=== PATIENT | female | born 1995 | race Caucasian/White ===

== ENCOUNTER 2020-06-11 13:02 | Emergency (ER) | payer OTHER, SELFPAY ==
[2020-06-11 13:16] VITALS: BP 118/68; PULSE 70; RESP 18; TEMP 37.1; O2SAT 100; BMI 25.5
--- NOTE | 2020-06-11 13:21 | DI.RAD.S_ITS ---
PROCEDURE: XR FOOT RT MIN 3V INDICATIONS: fall TECHNIQUE: 3 views of the foot were acquired. COMPARISON: [facility], CR, XR ANKLE RT MIN 3V, 06/11/2020, 13:20. FINDINGS: Bones: No fractures or dislocations. No suspicious bony lesions. Soft tissues: No tibiotalar joint effusion. Achilles tendon appears normal in thickness. IMPRESSION: No acute osseous abnormality of the right foot. Dictated by: Nawaf Gaines M.D. on 06/11/2020 at 12:49 Approved by: Nawaf Gaines M.D. on 06/11/2020 at 12:50
--- NOTE | 2020-06-11 13:21 | DI.RAD.S_ITS ---
PROCEDURE: XR ANKLE RT MIN 3V INDICATIONS: fall TECHNIQUE: 3 views of the ankle were acquired. COMPARISON: [facility], CR, XR FOOT RT MIN 3V, 06/11/2020, 13:20. FINDINGS: Bones: No fractures or dislocations. Ankle mortise is normally aligned. No suspicious bony lesions. Soft tissues: No tibiotalar joint effusion. Achilles tendon appears normal in thickness, but is not adequately evaluated on conventional x-ray. IMPRESSION: No acute osseous abnormality of the right ankle. Dictated by: Nawaf Gaines M.D. on 06/11/2020 at 12:50 Approved by: Nawaf Gaines M.D. on 06/11/2020 at 12:51
[2020-06-11] MEDS: ACETAMINOPHEN 325 MG TABLET 650 MG PO (15:37)
[2020-06-11] MEDS: IBUPROFEN 400 MG TABLET PO (15:38)
--- NOTE | 2020-06-11 15:48 | ED.LOWEXIN ---
HPI - Extremity Injury (Lower) <GRANT Ibarra - Last Filed: 06/11/20 22:16> General Chief Complaint: Extremity Injury, Lower Stated Complaint: Hurt Right Ankle, Fall Time Seen by Provider: 06/11/20 14:41 Source: patient Mode of arrival: Family Vehicle Limitations: no limitations History of Present Illness HPI Narrative: This is a 24 year female, former smoker, who presents to ED with significant other with chief complain of right lateral ankle pain and swelling with proximal foot pain. Patient reports was wearing flip-flops carpeted floor and when she stood up from computer chair her left foot gotten caught in a carpet and accidentally hyperflexed and fell on left shoulder at noon today. Patient denies injury to her head. The patient denies painful shoulder and reports able to move affected shoulder without difficulty. Patient denies previous injury to affected ankle or foot. She has not taken any medication prior coming into ED. Patient reports intact sensation and denies open skin from this injury. Related Data Allergies Allergy/AdvReac Type Severity Reaction Status Date / Time No Known Drug Allergies Allergy Verified 06/11/20 13:20 Review of Systems <GRANT Ibarra - Last Filed: 06/11/20 22:16> Review of Systems Narrative: General: Denies fever, chills, fatigue, malaise, sweats. HEENT: Denies sinus pain, ear pain, sore throat, difficulty swallowing, dizziness. Respiratory: Denies dyspnea, cough, wheezing, hemoptysis, sputum. Cardiovascular: Denies chest pain, palpitations, orthopnea, edema. Gastrointestinal: Denies nausea, vomiting, abdominal pain, diarrhea, constipation, melena. : Denies dysuria, frequency, incontinence, hematuria, urinary retention. Musculoskeletal: See HPI Skin: Denies rash, skin lesions, or other. Neurologic: Denies weakness, headache, numbness, change in speech, confusion, seizures, incoordination. Psychiatric: No concerning psychosocial issues. 12-point review of systems is negative except for those stated above. Patient History <GRANT Ibarra - Last Filed: 06/11/20 22:16> Medical History (Updated 06/11/20 @ 22:09 by GRANT Ibarra) No significant past medical history (Acute) Surgical History (Updated 06/11/20 @ 22:09 by GRANT Ibarra) No pertinent past surgical history (Acute) Social History Smoking Status: Former smoker Smoking Status: Former smoker alcohol intake frequency: 0-2 drinks per day Substance Use Type: does not use Exam <GRANT Ibarra - Last Filed: 06/11/20 22:16> Narrative Exam Narrative: General appearance: well developed, well nourished, in no acute distress. Head: normocephalic, atraumatic, no scalp lesions, non-tender. ENT: Hearing grossly intact. Airway patent. Neck/Thyroid: neck supple, full range of motion, no visible masses or meningeal signs. No JVD, non-tender without lymphadenopathy. Skin: no suspicious rashes, lesions over visible areas. Warm and dry and appropriate color for ethnicity. Heart: no clubbing, no cyanosis, no edema. Lungs: Breathing even and unlabored. No stridor. No accessory muscles used. Able to speak in full sentences. Chest: normal shape and expansion. Abdomen: non-obese, non-distended. Neurologic: alert and oriented. Cognitive exam, PRESCHOOL AIDE and PNS grossly intact on informal exam. Psych: good eye contact, normal affect. Initial Vital Signs Initial Vital Signs: Vital Signs Temperature 98.7 F 06/11/20 13:16 Pulse Rate 70 06/11/20 13:16 Respiratory Rate 18 06/11/20 13:16 Blood Pressure 118/68 06/11/20 13:16 Pulse Oximetry 100 06/11/20 13:16 Extrem Right lower extremity: ankle Details: abnormal to inspection, swelling Details: laterally (Malleolar) and abnormal ROM Details: pain with active ROM and pain with passive ROM; no unusual warmth, no abrasions, no lacerations, no crepitus and no penetrating wound and foot Details: normal capillary refill, normal to inspection, tenderness Location: of the dorsal foot (Proximal foot near ankle), toes with normal ROM, vascular exam Details: dorsalis pedis pulse present and motor-sensory exam Details: light-touch normal; no unusual warmth, no abrasion, no laceration, no ecchymosis, no crepitus and no puncture wound <Maria Antonia Short DO - Last Filed: 06/12/20 07:39> Initial Vital Signs Initial Vital Signs: Vital Signs Temperature 98.7 F 06/11/20 13:16 Pulse Rate 70 06/11/20 13:16 Respiratory Rate 18 06/11/20 13:16 Blood Pressure 118/68 06/11/20 13:16 Pulse Oximetry 100 06/11/20 13:16 Procedures <GRANT Ibarra - Last Filed: 06/11/20 22:16> Orthopedic Splinting/Casting Injury #1: Side: right Lower Extremity Injury Location: ankle and foot Lower Extremity Immobilizer: AirCast Other Orthopedic Equipment: crutches Post splinting neuro exam: intact Post splinting vascular exam: intact Placed by: Nursing Scores <GRANT Ibarra - Last Filed: 06/11/20 22:16> GCS Lynn coma scale eye opening: Spontaneous Lynn coma scale verbal response: Orientated Lynn coma scale motor response: Obey commands Lynn coma scale total score: 15 Course <GRANT Ibarra - Last Filed: 06/11/20 22:16> Orders Ordered: Discontinued Medications Acetaminophen (Tylenol) 650 mg PO NOW ONE Stop: 06/11/20 15:15 Last Admin: 06/11/20 15:37 Dose: 650 mg Documented by: RYAN Ibuprofen (Advil) 400 mg PO NOW ONE Stop: 06/11/20 15:15 Last Admin: 06/11/20 15:38 Dose: 400 mg Documented by: RYAN Vital Signs Vital signs: Vital Signs - 8 hr 06/11/20 16:13 Pulse Rate 86 Respiratory Rate 18 Blood Pressure 122/84 Pulse Oximetry 98 <Maria Antonia Short DO - Last Filed: 06/12/20 07:39> Orders Ordered: Discontinued Medications Acetaminophen (Tylenol) 650 mg PO NOW ONE Stop: 06/11/20 15:15 Last Admin: 06/11/20 15:37 Dose: 650 mg Documented by: RYAN Ibuprofen (Advil) 400 mg PO NOW ONE Stop: 06/11/20 15:15 Last Admin: 06/11/20 15:38 Dose: 400 mg Documented by: RYAN Vital Signs Vital signs: Vital Signs - 8 hr 06/11/20 16:13 Pulse Rate 86 Respiratory Rate 18 Blood Pressure 122/84 Pulse Oximetry 98 MDM - Extremity Injury (Lower) <MEGHA IbarraP - Last Filed: 06/11/20 22:16> Differential Diagnosis Differential diagnosis: Likely ankle sprain and strain and other (Ankle/foot fracture) Medical Records Attestation: I reviewed the patient's medical records. Imaging Data XR-Foot RT: Radiologist's Impression: [address] [address] XRay Report Signed Patient: Tata Chavez LMR#: [id number] : 1995Acct:[id number] Age/Sex: 24 / FDate of Service: 06/11/20 Loc: ED Accession Number: [id number] Procedure: XR foot RT min 3V Ordering Provider: Maria Antonia Short D.O. PROCEDURE: XR FOOT RT MIN 3V INDICATIONS: fall TECHNIQUE: 3 views of the foot were acquired. COMPARISON: [facility], XR ANKLE RT MIN 3V, 06/11/2020, 13:20. FINDINGS: Bones: No fractures or dislocations. No suspicious bony lesions. Soft tissues: No tibiotalar joint effusion. Achilles tendon appears normal in thickness. IMPRESSION: No acute osseous abnormality of the right foot. Dictated by: Nawaf Gaines M.D. on 06/11/2020 at 12:49 Approved by: Nawaf Gaines M.D. on 06/11/2020 at 12:50 XR-Ankle RT: Radiologist's Impression: [address] [address] XRay Report Signed Patient: Tata Chavez LMR#: [id number] : 1995Acct:[id number] Age/Sex: 24 / FDate of Service: 06/11/20 Loc: ED Accession Number: [id number] Procedure: XR ankle RT min 3V Ordering Provider: Maria Antonia Short D.O. PROCEDURE: XR ANKLE RT MIN 3V INDICATIONS: fall TECHNIQUE: 3 views of the ankle were acquired. COMPARISON: [facility], XR FOOT RT MIN 3V, 06/11/2020, 13:20. FINDINGS: Bones: No fractures or dislocations. Ankle mortise is normally aligned. No suspicious bony lesions. Soft tissues: No tibiotalar joint effusion. Achilles tendon appears normal in thickness, but is not adequately evaluated on conventional x-ray. IMPRESSION: No acute osseous abnormality of the right ankle. Dictated by: Nawaf Gaines M.D. on 06/11/2020 at 12:50 Approved by: Nawaf Gaines M.D. on 06/11/2020 at 12:51 [facility] Narrative Medical decision making narrative: Patient is a 24 year female presents to ED with right lateral ankle and proximal foot pain after she accidentally hyperflexed affected food at noon today. There is moderate swelling to lateral malleolar region. Intact sensation with distal pulse and brisk cap refill on right foot. Patient is able to move her toes but reports increased pain with active and passive movement of her foot and ankle. X-ray test on right ankle and foot does not show obvious fracture or dislocation. Patient's affected foot was placed on air cast and crutch was fitted, provided with teaching on crutch use. Patient advised to exercise/gentle stretch on right foot/ankle after acute pain is decreased and to use RICE therapy. Findings were discussed with patient and spouse. Advised to follow up with primary care physician next week and to follow up with [facility] orthopedist if pain is not improving as expected. Advised to use [id number] Tylenol and or Motrin as needed for discomfort and inflammation. Patient and spouse verbalized understanding and in agreement with the treatment plan. Discharge Plan Departure Patient Disposition: Home Clinical Impression: Ankle sprain and strain Discharge Date/Time: 06/11/20 16:14 Instructions: DI for Ankle Sprain Activity Restrictions/Additional Instructions: You have been diagnosed with [right ankle sprain/strain. X-ray test on ankle and foot does not show acute findings such as fracture or dislocation today.]. What to do: *Take your medications as directed. Please use [id number] ibuprofen/Aleve for inflammation and pain. You can use 400-600 mg up to 3 times a day with food as needed. You can add Tylenol as needed for pain as well. You can use 650-1000 mg up to 3 to 4 times a day as needed. Please use RICE therapy-rest, cool pack for next 2-3 days, use splint, and elevation for pain and inflammation. *Follow up with your primary care provider in 2-3 days, call for an appointment. If pain is not improving as expected, please follow-up with [facility] orthopedist. Let them know you were seen in the ED and that we asked you to be seen in follow up. *Return to ED if you have any new, worsening, or concerning symptoms, such as [chest pain, breathing difficulty, unable to tolerate fluids, weakness to affected foot and leg, decreased sensation, worsening pain, or any acute concerns]. Referrals: [facility] [Provider Group] [facility] [Outside] <Maria Antonia Short DO - Last Filed: 06/12/20 07:39> Cosign ED Attending Yesicaature Attestation: I was immediately available in the department for consultation. Documentation has been reviewed. I agree with assessment and plan.
[2020-06-11 16:13] VITALS: BP 122/84; PULSE 86; RESP 18; O2SAT 98
== END 2020-06-11 16:14 | disposition home or self-care (01) ==
PROVIDERS: Emergency Provider Nurse Practitioner Family
DX: S93.401A Sprain of unspecified ligament of right ankle, initial encounter (principal); S96.911A Strain of unspecified muscle and tendon at ankle and foot level, right foot, initial encounter; W19.XXXA Unspecified fall, initial encounter
CPT/HCPCS: 29540; 73610; 73630; 99283; 99284

== ENCOUNTER → 2020-06-23 10:35 | Outpatient (ROUT) | payer SELFPAY ==
[2020-06-23 10:37] LABS: Urine Drug Scr, Empl Non-NIDA See Separate Report
== END ==
DX: Z02.1 Encounter for pre-employment examination (principal)
CPT/HCPCS: 81099

== ENCOUNTER → 2020-09-21 | Outpatient (CLI) | payer OTHER, SELFPAY | PROVIDERS: PCP Registered Nurse; Referring Provider Internal Medicine; Visit Provider Internal Medicine | DX: Z23 Encounter for immunization (principal) | CPT/HCPCS: 90471; 90686 ==

== ENCOUNTER → 2020-09-24 07:02 | Outpatient (CLI) | payer OTHER, SELFPAY ==
[2020-09-24 08:37] LABS: Alanine Aminotransferase 21 IU/L (<35); Albumin 4.1 g/dL (3.5-5.0); Albumin Globulin Ratio 1.5 (1.0-2.8); Alkaline Phosphatase 50 U/L (38-126); Aspartate Aminotransferase 27 IU/L (14-36); BUN Creatinine Ratio 21.9 (6-22); Bilirubin Total 0.6 mg/dL (0.2-1.3); Blood Urea Nitrogen 14 mg/dL (7-17); Calcium 9.3 mg/dL (8.4-10.2); Carbon Dioxide 30 mmol/L (22-32); Chloride 105 mmol/L (98-107); Estimated Glomerular Filt Rate > 60.0 mL/min (>60); Globulin 2.8 g/dL (1.7-4.1); Glucose 83 mg/dL (70-100); HEMOLYSIS < 15 (0-50); Potassium 4.4 mmol/L (3.4-5.1); Sodium 140 mmol/L (137-145); Total Protein 6.9 g/dL (6.3-8.2)
== END ==
PROVIDERS: PCP Registered Nurse; Referring Provider Registered Nurse; Visit Provider Registered Nurse
DX: F32.9 Major depressive disorder, single episode, unspecified (principal); F41.9 Anxiety disorder, unspecified
CPT/HCPCS: 36415; 80053

== ENCOUNTER → 2020-10-13 10:42 | Outpatient (CLI) | payer OTHER, SELFPAY ==
[2020-10-13 12:33] LABS: COVID19 -Nasal RAPID Negative (Negative)
== END ==
PROVIDERS: PCP Registered Nurse; Visit Provider Physician Assistant
DX: Z20.828 Contact with and (suspected) exposure to other viral communicable diseases (principal)
CPT/HCPCS: 87635

== ENCOUNTER → 2020-12-03 15:41 | Outpatient (CLI) | payer OTHER, SELFPAY ==
[2020-12-03] MEDS: COVID-19 VACC(MODERNA-1)/PF 100 MCG/0.5 ML VIAL IM (15:48)
== END ==
PROVIDERS: PCP Registered Nurse; Visit Provider Internal Medicine
DX: Z23 Encounter for immunization (principal)
CPT/HCPCS: 0011A; 91301

== ENCOUNTER → 2020-12-31 15:41 | Outpatient (CLI) | payer OTHER, SELFPAY ==
[2020-12-31] MEDS: COVID-19 VACC #2, MRNA(MOD) 100 MCG/0.5 ML VIAL IM (15:47)
== END ==
PROVIDERS: PCP Registered Nurse; Visit Provider Internal Medicine
DX: Z23 Encounter for immunization (principal)
CPT/HCPCS: 0012A; 91301

== ENCOUNTER → 2021-06-22 11:32 | Outpatient (CLI) | payer OTHER, SELFPAY ==
[2021-06-22 12:57] LABS: Add Manual Diff / Slide Review NO; Basophils Absolute Auto 0 /uL (0-100); Basophils Percent Auto 0.6 % (0-2); Eosinophils Absolute Auto 100 /uL (0-450); Eosinophils Percent Auto 1.4 % (2-4); Hematocrit 37.4 % (36-46); Hemoglobin 12.8 g/dL (12.0-16.0); Lymphocytes Absolute Auto 1700 /uL (1100-4500); Lymphocytes Percent Auto 26.5 % (25-40); Mean Corpuscular HGB Conc 34.2 % (30-36); Mean Corpuscular Hemoglobin 28.8 PG (26-34); Mean Corpuscular Volume 84.3 fL (80-100); Monocytes Absolute Auto 700 /uL (0-900); Monocytes Percent Auto 10.7 % (3-14); Neutrophils Absolute Auto 3900 /uL (1500-7000); Neutrophils Percent Auto 60.8 % (50-75); Platelet Count 161 X10^3/uL (150-400); Red Blood Cell Count 4.43 X10^6/uL (4.0-5.2); Red Cell Distribution Width 13.1 % (11.6-14.8); White Blood Cell Count 6.4 X10^3/uL (4.5-11.0)
[2021-06-23 13:16] LABS: Varicella IgG Antibody <135 index (Immune >165)
== END ==
PROVIDERS: Obstetrics & Gynecology; PCP Registered Nurse; Referring Provider Registered Nurse; Visit Provider Registered Nurse
DX: Z31.69 Encounter for other general counseling and advice on procreation (principal); R42 Dizziness and giddiness
CPT/HCPCS: 36415; 85025; 86762; 86787

== ENCOUNTER → 2021-06-24 16:07 | Outpatient (CLI) | payer OTHER, SELFPAY ==
--- NOTE | 2021-06-24 16:09 | DI.US.S_ITS ---
PROCEDURE: US OB <= 14 WEEKS FETUS INDICATIONS: VIABILITY AND DATING OUTSIDE/PRIOR DATING DATA: Last menstrual period (LMP): 04/28/21. LMP-based estimated date of delivery (SHERITA): 02/02/22. First dating scan (date and location): 06/24/21. Estimated date of delivery (SHERITA) from first dating scan: 02/10/22. TECHNIQUE: Real-time scanning was performed of the fetus and maternal pelvic organs, with image documentation. Endovaginal scanning was also performed to better visualize the fetus and maternal ovaries. COMPARISON: None. FINDINGS: Embryo: Single living fetus is present with a crown-rump length measuring 0.9 cm, 7 weeks 0 days. heart rate measures 131 beats per minute. Measurement variability in dating: +/- 4 weeks by LMP, +/- 7 days by mean sac diameter (use before 6 weeks gestation if crown-rump length not able to be measured), +/- 5 days by crown-rump length (up to 8 weeks 6 days gestation), +/- 7 days by crown-rump length (up to 13 weeks 6 days gestation). Maternal organs: Right ovarian cyst measuring 5.2 x 4.2 x 4.1 cm. There is a presumed left-sided corpus luteum. . IMPRESSION: Single living intrauterine fetus with a gestational age measuring 7 weeks and 0 days by today's ultrasound measurements corresponding to an SHERITA of 02/10/22. Large simple appearing right ovarian cyst measuring 5.2 cm. Technically, increased risk of spontaneous ovarian torsion is conceivable given large size. Dictated by: Ashutosh Hernández M.D. on 06/24/2021 at 17:00 Approved by: Ashutosh Hernández M.D. on 06/24/2021 at 17:02
== END ==
PROVIDERS: PCP Registered Nurse; Referring Provider Family Medicine; Visit Provider Family Medicine
DX: Z36.87 Encounter for antenatal screening for uncertain dates (principal); O34.81 Maternal care for other abnormalities of pelvic organs, first trimester; N83.201 Unspecified ovarian cyst, right side; Z3A.01 Less than 8 weeks gestation of pregnancy
CPT/HCPCS: 76801; 76817

== ENCOUNTER → 2021-06-27 15:36 | Outpatient (CLI) | payer OTHER, SELFPAY ==
[2021-06-27 16:23] LABS: Appearance Urine UA CLEAR; Bilirubin Urine UA NEGATIVE (NEGATIVE); Color Urine UA YELLOW; Glucose Urine UA NEGATIVE (Negative); Ketones Urine UA NEGATIVE (NEGATIVE); Leukocyte Esterase Urine UA NEGATIVE (NEGATIVE); Nitrite Urine UA NEGATIVE (Negative); Occult Blood Urine UA NEGATIVE (Negative); Protein Urine UA TRACE (Negative); Specific Gravity Urine UA 1.025 (1.000-1.035); Urobilinogen Urine UA 0.2 E.U./dL (0.2)
[2021-06-27 16:24] LABS: pH Urine UA 5.5 (4.5-8.0)
[2021-06-27 16:27] LABS: Add Manual Diff / Slide Review NO; Basophils Absolute Auto 0 /uL (0-100); Basophils Percent Auto 0.6 % (0-2); Eosinophils Absolute Auto 100 /uL (0-450); Eosinophils Percent Auto 1.3 % (2-4); Hematocrit 37.2 % (36-46); Hemoglobin 12.4 g/dL (12.0-16.0); Lymphocytes Absolute Auto 1600 /uL (1100-4500); Lymphocytes Percent Auto 26.6 % (25-40); Mean Corpuscular HGB Conc 33.4 % (30-36); Mean Corpuscular Volume 83.8 fL (80-100); Monocytes Absolute Auto 700 /uL (0-900); Monocytes Percent Auto 11.5 % (3-14); Neutrophils Absolute Auto 3700 /uL (1500-7000); Platelet Count 184 X10^3/uL (150-400); Red Blood Cell Count 4.44 X10^6/uL (4.0-5.2); Red Cell Distribution Width 13.2 % (11.6-14.8); White Blood Cell Count 6.1 X10^3/uL (4.5-11.0)
[2021-06-27 17:27] LABS: HIV 1 & 2 Ab/Ag 4th Gen Combo NEGATIVE (NEGATIVE); Hep C Virus Ab w/Reflex Quant NEGATIVE s/c (NEGATIVE); Hepatitis B Surface Antigen NEGATIVE s/c (NEGATIVE)
[2021-06-28 06:09] LABS: RPR Screen Non Reactive (Non Reactive)
== END ==
PROVIDERS: PCP Registered Nurse; Referring Provider Family Medicine; Visit Provider Family Medicine
DX: Z34.01 Encounter for supervision of normal first pregnancy, first trimester (principal)
CPT/HCPCS: 36415; 80055; 81003; 86803; 86850; 86900; 86901; 87086; 87389

== ENCOUNTER → 2021-07-25 10:06 | Outpatient (CLI) | payer OTHER, SELFPAY ==
[2021-07-25 14:39] LABS: COVID19 -Nasal RAPID Negative (Negative)
== END ==
PROVIDERS: PCP Registered Nurse; Visit Provider Physician Assistant
DX: Z20.822 Contact with and (suspected) exposure to COVID-19 (principal); J02.9 Acute pharyngitis, unspecified
CPT/HCPCS: 87635

== ENCOUNTER → 2021-07-28 10:48 | Outpatient (CLI) | payer OTHER, SELFPAY ==
[2021-07-28 11:35] LABS: COVID19 -Nasal RAPID Negative (Negative)
== END ==
PROVIDERS: PCP Registered Nurse; Referring Provider Nurse Practitioner; Visit Provider Nurse Practitioner
DX: Z20.822 Contact with and (suspected) exposure to COVID-19 (principal)
CPT/HCPCS: 87635

== ENCOUNTER → 2021-08-03 10:47 | Outpatient (CLI) | payer OTHER, SELFPAY ==
[2021-08-03 15:50] LABS: COVID19 -Nasal RAPID Negative (Negative)
== END ==
PROVIDERS: PCP Registered Nurse; Visit Provider Physician Assistant
DX: Z20.822 Contact with and (suspected) exposure to COVID-19 (principal)
CPT/HCPCS: 87635; C9803

== ENCOUNTER → 2021-09-02 11:31 | Outpatient (CLI) | payer OTHER, SELFPAY ==
[2021-09-05 16:36] LABS: AFP, Serum 37.5 ng/mL (.); Calc Gestational Age Ultrasound (.); Estriol, Free 1.05 ng/mL (.); Inhibin A, Dimeric 76.57 pg/mL (.); Inhibin A, MoM See interpretation. (.); Maternal Ethnicity Caucasian (.); Maternal Weight 210 lbs (.); Number of Fetuses No (.); OSBR Risk 1 IN 10000 (.); Results Report (.); Test Results See interpretation. (.); hCG, MoM See interpretation. (.); hCG, Serum 21047 mIU/mL (.)
== END ==
PROVIDERS: PCP Registered Nurse; Referring Provider Family Medicine; Visit Provider Family Medicine
DX: Z34.90 Encounter for supervision of normal pregnancy, unspecified, unspecified trimester (principal); Z3A.17 17 weeks gestation of pregnancy
CPT/HCPCS: 36415; 82105; 82677; 84702; 86336

== ENCOUNTER → 2021-09-05 11:15 | Outpatient (CLI) | payer OTHER, SELFPAY | PROVIDERS: PCP Registered Nurse; Referring Provider Internal Medicine; Visit Provider Internal Medicine | DX: Z23 Encounter for immunization (principal) | CPT/HCPCS: 90471; 90686 ==

== ENCOUNTER → 2021-09-26 15:03 | Outpatient (CLI) | payer OTHER, SELFPAY ==
--- NOTE | 2021-09-26 15:05 | DI.US.S_ITS ---
PROCEDURE: US OB >= 14 WEEKS FETUS INDICATIONS: Anatomy scan OUTSIDE/PRIOR DATING DATA: Last menstrual period (LMP): 04/28/2021. LMP-based estimated date of delivery (SHERITA): 02/02/2022. First dating scan (date and location): 06/24/2021. Estimated date of delivery (SHERITA) from first dating scan: 02/10/2022. TECHNIQUE: Real-time scanning was performed of the fetus, with image documentation and biometric measurements. COMPARISON: 06/24/2021. FINDINGS: General: A single living intrauterine gestation is present. Presentation: Breech. Placenta: Placental position is posterior, without previa. Amniotic fluid index: 19.8 cm, normal range is 5-24 cm. heart rate: 140 beats per minute. Maternal cervical canal: 3.8 cm long. Normal lower limit is 2.5 cm. biometrics: Biparietal diameter: 5 cm, 21 weeks 0 days Head circumference: 19.2 cm, 21 weeks 3 days Abdominal circumference: 16.8 cm, 21 weeks 6 days Femur length: 3.5 cm, 21 weeks 1 day Estimated gestational age from initial scan: 20 weeks 3 days Composite gestational age from present scan: 21 weeks 3 days Estimated weight and percentile: 428 g, 94th percentile Measurement variability for biometric dating: +/- 7 days from 14 weeks to 15 weeks 6 days gestation, +/- 10 days from 16 weeks to 21 weeks 6 days gestation, +/- 2 weeks from 22 weeks to 27 weeks 6 days gestation, +/- 3 weeks for 28 weeks gestation or later. weight reference: 4500 g or EFW >90/95% is considered macrosomia or large for gestational age. EFW <10% is small for gestational age. EFW 5% or less is considered intra-uterine growth restriction. Anatomic survey: Neuro: Ventricles are non-dilated at less than 10 mm. Cisterna magna is normal at 3-11 mm. Cerebellum is normal in size and morphology. Nuchal skin fold: Normal at less than 6 mm between 14-21 weeks gestational age. Face: Expected facial profile. Nose is unremarkable. There is a vertical hypoechoic line in the midline upper lip (image 29). Spine: No evidence for spina bifida. Heart: 4-chambered heart is present, with normal ventricular outflow tracts. Diaphragm: Diaphragm is intact. Stomach: Not seen. Kidneys: No hydronephrosis. Normal is less than 5 mm in 2nd trimester, less than 7 mm in 3rd trimester. Cord: 3-vessel cord has orthotopic insertion. Bladder: Normal in size. Extremities: All 4 extremities identified. Right ovarian cyst measuring 6 x 4.3 x 4 cm, (previously 5.2 x 4.2 x 4.1 cm). Left ovary not seen. IMPRESSION: 1. Nieves living intrauterine at 21 weeks 3 days based on today's ultrasound. This is concordant with the prior ultrasound. Fetus is in the 94th percentile for weight. This raises the possibility of macrosomia. 2. Normal placenta and amniotic fluid. 3. stomach is not seen. Situs cannot be determined. Concern for cleft upper lip. Otherwise normal anatomic survey. Recommend follow-up OB ultrasound. Dictated by: Eliu Santana M.D. on 09/27/2021 at 11:53 Approved by: Eliu Santana M.D. on 09/27/2021 at 12:03
== END ==
PROVIDERS: PCP Registered Nurse; Referring Provider Registered Nurse; Visit Provider Registered Nurse
DX: Z36.89 Encounter for other specified antenatal screening (principal); Z3A.21 21 weeks gestation of pregnancy
CPT/HCPCS: 76811

== ENCOUNTER → 2021-10-06 07:33 | Outpatient (CLI) | payer OTHER, SELFPAY ==
[2021-10-06 08:18] LABS: COVID19 -Nasal RAPID Negative (Negative)
== END ==
PROVIDERS: PCP Registered Nurse; Referring Provider Nurse Practitioner Family; Visit Provider Nurse Practitioner Family
DX: Z20.822 Contact with and (suspected) exposure to COVID-19 (principal)
CPT/HCPCS: 87635

== ENCOUNTER → 2021-10-06 16:03 | Outpatient (CLI) | payer OTHER, SELFPAY ==
--- NOTE | 2021-10-06 16:05 | DI.US.S_ITS ---
PROCEDURE: US OB LIMITED INDICATIONS: follow anatomy scan OUTSIDE/PRIOR DATING DATA: Last menstrual period (LMP): 04/28/2021. LMP-based estimated date of delivery (SHERITA): 02/02/2022. First dating scan (date and location): 06/24/2021. Estimated date of delivery (SHERITA) from first dating scan: 02/10/2022. TECHNIQUE: Real-time scanning was performed of the fetus, with image documentation. Endovaginal scanning: Not performed COMPARISON: 09/26/2021. FINDINGS: A single living intrauterine gestation is present. Presentation: Breech. Placenta: Placental position is posterior right, without previa. Amniotic fluid index: 17.3 cm, normal range is 5-24 cm. heart rate: 139 beats per minute. Maternal cervical canal: 4.1 cm long. Normal lower limit is 2.5 cm. Estimated gestational age from initial scan: 21 weeks 6 days. Cleft lip or palate is not definitely seen. However, there may be a very subtle hypoechoic line at the left upper lip laterally. Stomach is decompressed but is located in the left abdomen opposite of the cardiac apex. IMPRESSION: 1. Nieves living intrauterine at 21 weeks 6 days based on prior dating. 2. Normal placenta and amniotic fluid. 3. Very subtle hypoechoic line at the left upper lip laterally. Overall low suspicion for cleft lip given the size and location of this finding. -A 3D ultrasound of the face would be helpful to exclude cleft lip. 4. The stomach is not well distended. However, the stomach is located in the left abdomen as expected. Dictated by: Eliu Santana M.D. on 10/07/2021 at 9:16 Approved by: Eliu Santana M.D. on 10/07/2021 at 9:38
== END ==
PROVIDERS: PCP Registered Nurse; Referring Provider Family Medicine; Visit Provider Family Medicine
DX: Z20.822 Contact with and (suspected) exposure to COVID-19 (principal); Z3A.21 21 weeks gestation of pregnancy; Z36.2 Encounter for other antenatal screening follow-up
CPT/HCPCS: 76815; 87635

== ENCOUNTER → 2021-10-12 08:07 | Outpatient (CLI) | payer OTHER, SELFPAY ==
[2021-10-12 08:35] LABS: COVID19 -Nasal RAPID Negative (Negative)
== END ==
PROVIDERS: PCP Registered Nurse; Referring Provider Nurse Practitioner Family; Visit Provider Nurse Practitioner Family
DX: Z20.822 Contact with and (suspected) exposure to COVID-19 (principal)
CPT/HCPCS: 87635

== ENCOUNTER → 2021-10-18 12:15 | Outpatient (CLI) | payer OTHER, SELFPAY ==
[2021-10-18 12:51] LABS: COVID19 -Nasal RAPID Negative (Negative)
== END ==
PROVIDERS: PCP Registered Nurse; Referring Provider Nurse Practitioner Family; Visit Provider Nurse Practitioner Family
DX: Z20.822 Contact with and (suspected) exposure to COVID-19 (principal)
CPT/HCPCS: 87635

== ENCOUNTER → 2021-11-04 06:54 | Outpatient (CLI) | payer OTHER, SELFPAY ==
[2021-11-04 08:40] LABS: Hematocrit 28.4 % (36-46); Hemoglobin 9.8 g/dL (12.0-16.0)
[2021-11-04 09:13] LABS: GTT (PREG) 1 Hour PP 50gm Dose 151 mg/dL (76-139)
== END ==
PROVIDERS: PCP Registered Nurse; Referring Provider Family Medicine; Visit Provider Family Medicine
DX: Z34.93 Encounter for supervision of normal pregnancy, unspecified, third trimester (principal); Z3A.26 26 weeks gestation of pregnancy
CPT/HCPCS: 36415; 82950; 85014; 85018

== ENCOUNTER → 2021-11-11 07:04 | Outpatient (CLI) | payer OTHER, SELFPAY ==
[2021-11-11 09:23] LABS: Glucose Fasting Gestational 71 mg/dL (76-95)
[2021-11-11 10:44] LABS: Glucose Tol Interp,Gestational INTERPRETATION
[2021-11-11 11:38] LABS: Glucose 2 Hour Gest 50 mg/dL (76-155)
[2021-11-11 11:40] LABS: Glucose 1 Hour Gest 102 mg/dL (76-180)
[2021-11-11 11:45] LABS: Glucose 3 Hour Gest 64 mg/dL (76-140)
== END ==
PROVIDERS: PCP Registered Nurse; Referring Provider Family Medicine; Visit Provider Family Medicine
DX: R73.09 Other abnormal glucose (principal)
CPT/HCPCS: 36415; 82951; 82952

== ENCOUNTER → 2022-01-13 11:53 | Outpatient (CLI) | payer OTHER, SELFPAY ==
[2022-01-14 12:44] LABS: Strep Grp B PCR NEG for Grp B Strep
== END ==
PROVIDERS: PCP Registered Nurse; Visit Provider Family Medicine
DX: Z36.85 Encounter for antenatal screening for Streptococcus B (principal); Z3A.36 36 weeks gestation of pregnancy
CPT/HCPCS: 87653

== ENCOUNTER → 2022-01-25 10:02 | Outpatient (CLI) | payer OTHER, SELFPAY ==
--- NOTE | 2022-01-25 10:35 | P.TNLD_ITS ---
Visit Information Visit Information Date of evaluation: 01/25/22 Primary OB Provider: Tammie Sotomayor Reason for Evaluation: Yes non-stress test non-stress test reason: decreased movement Comments/Additional reasons for admission: 26yo at 37w5d here due to decreased movement. Pt reports feeling little movement since early this morning. No LOF, vaginal bleeding, contractions. [facility] Medical History Benign paroxysmal vertigo (~08/2020) Cervical cancer screening (~11/08/20) Dizziness GERD (gastroesophageal reflux disease) (~2018) Hypertension (~2016) Megacolon (~2007) Otitis media Tibia/fibula fracture (~2003) Twin (~95) Surgical History Gastric bypass status for obesity (~05/05/19) H/O total colectomy (~2007) History of tonsillectomy and adenoidectomy (~2004) Hx laparoscopic cholecystectomy (~2007) Family History Mother Diabetes mellitus Hypertension Obesity Pancreatitis Father Deep vein blood clot of left lower extremity Obesity Hypertension Grandmother Diabetes mellitus Obesity Hypertension Amputation leg, bilat Grandfather Alcoholism Stroke Grandmother No problems noted. Grandfather No problems noted. Social History marital status: number of children: 0 household members: spouse lives independently: Yes caregiver/support person: No housing: apartment pets and animals: Yes (1 dog: safe & aware. ) education level: college occupational status: employed current occupational exposures/hazards: No santi/restoration: Shinto special santi needs: No seatbelt use: always helmet use: Yes working smoke detector in home: Yes fire extinguisher in home: Yes carbon monox detector in home: Yes firearms in home: Yes firearms unloaded and locked: Yes do you feel safe at home: Yes Smoking Status: Never smoker second hand exposure: No substance use type: does not use during the past year weight has: remained stable well-balanced diet: daily or most days daily servings fruits/ve-4 caffeine: No (quit w ) Type(s) of exercise: walking and occasional exercise frequency: 3-4 times per week duration: 15-30 minutes/day Evaluation Evaluation Baseline heart rate: 150 Variability: Moderate (11-25) monitor accelerations: Present Monitor Decelerations: Absent Category of Tracing: Reactive Diagnosis, Plan/Disposition Final Diagnosis (1) Decreased movement: Status: Acute (2) 37 weeks gestation of : Status: Acute Plan/Disposition Plan: 26yo at 37w5d here for decreased movement. Reactive NST. Stable for d/c home. OB Disposition: home
== END ==
PROVIDERS: PCP Registered Nurse; Referring Provider Family Medicine; Visit Provider Family Medicine
DX: O36.8130 Decreased fetal movements, third trimester, not applicable or unspecified (principal); Z3A.37 37 weeks gestation of pregnancy
CPT/HCPCS: 59025; G0378; G0379

== ENCOUNTER 2022-02-03 01:32 | Inpatient (IN) | payer OTHER, SELFPAY ==
[2022-02-03 03:36] LABS: Add Manual Diff / Slide Review NO; Basophils Absolute Auto 0 /uL (0-100); Basophils Percent Auto 0.6 % (0-2); Eosinophils Absolute Auto 100 /uL (0-450); Eosinophils Percent Auto 1.2 % (2-4); Hematocrit 39.3 % (36-46); Hemoglobin 13.1 g/dL (12.0-16.0); Lymphocytes Absolute Auto 1800 /uL (1100-4500); Mean Corpuscular HGB Conc 33.4 % (30-36); Mean Corpuscular Hemoglobin 28.4 PG (26-34); Monocytes Absolute Auto 900 /uL (0-900); Monocytes Percent Auto 11.8 % (3-14); Neutrophils Absolute Auto 4700 /uL (1500-7000); Neutrophils Percent Auto 62.4 % (50-75); Platelet Count 164 X10^3/uL (150-400); Red Blood Cell Count 4.62 X10^6/uL (4.0-5.2); White Blood Cell Count 7.5 X10^3/uL (4.5-11.0)
[2022-02-03 03:41] LABS: COVID19 -Nasal RAPID Negative (Negative)
[2022-02-03 03:44] VITALS: BP 121/85
--- NOTE | 2022-02-03 08:16 | P.HPOB_ITS ---
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 Contractions have been increasing this morning. Denies bleeding and reports good FM. has been uncomplicated. She has taken sertraline throughout the . care: good care, initiated at week # (8), number of visits (11) and pounds weight gain (55) Dating criteria OB: based on 1st trimester US only Ultrasounds: normal mid trimester US (EFW 94%) Obstetrical complications: none Medical complications OB: none Preadmission Labs Last OB Lab Results: Blood Type A Positive 02/03/22 02:50 02/03/22 Antibody Screen Negative 02/03/22 02:50 02/03/22 Hematocrit 39.3 % (36-46) 02/03/22 02:50 02/03/22 Hemoglobin 13.1 g/dL (12.0-16.0) 02/03/22 02:50 02/03/22 Hepatitis B Surface Antigen Negative s/c (NEGATIVE) 06/27/21 15:49 06/27/21 Hepatitis C Antibody Negative s/c (NEGATIVE) 06/27/21 15:49 06/27/21 Rubella Antibody 118.0 IU/mL (>15) 06/27/21 15:49 06/27/21 Varicella-Zoster IgG Antibody <135 index (Immune >165) L 06/22/21 11:50 06/22/21 Glucose 1 Hour 151 mg/dL (76-139) H 11/04/21 08:17 11/04/21 Group B Streptococcus (PCR) Neg for grp b strep 01/13/22 11:53 01/13/22 -: Urine: negative -: PAP smear: Normal Genetic Screens: Quad screen: Normal External Labs -: Urine: negative Evaluation Evaluation Baseline heart rate: 120 Variability: Moderate (11-25) monitor accelerations: Present Monitor Decelerations: Absent Contraction Frequency (minutes): 3 Uterine Contraction Intensity: Moderate Category of Tracing: Reactive Status: Category l Dilation (cm): 1 Effacement (%): 50 station: -2 [facility] Medical History Benign paroxysmal vertigo (~08/2020) Cervical cancer screening (~11/08/20) Dizziness GERD (gastroesophageal reflux disease) (~2018) Hypertension (~2016) Megacolon (~2007) Otitis media Tibia/fibula fracture (~2003) Twin (~95) Surgical History Gastric bypass status for obesity (~05/05/19) H/O total colectomy (~2007) History of tonsillectomy and adenoidectomy (~2004) Hx laparoscopic cholecystectomy (~2007) Family History Mother Diabetes mellitus Hypertension Obesity Pancreatitis Father Deep vein blood clot of left lower extremity Obesity Hypertension Grandmother Diabetes mellitus Obesity Hypertension Amputation leg, bilat Grandfather Alcoholism Stroke Grandmother No problems noted. Grandfather No problems noted. Social History marital status: number of children: 0 household members: spouse lives independently: Yes caregiver/support person: No housing: apartment pets and animals: Yes (1 dog: safe & aware. ) education level: college occupational status: employed current occupational exposures/hazards: No santi/catholic: [employer] special santi needs: No seatbelt use: always helmet use: Yes working smoke detector in home: Yes fire extinguisher in home: Yes carbon monox detector in home: Yes firearms in home: Yes firearms unloaded and locked: Yes do you feel safe at home: Yes Smoking Status: Never smoker second hand exposure: No substance use type: does not use during the past year weight has: remained stable well-balanced diet: daily or most days daily servings fruits/ve-4 caffeine: No (quit w ) Type(s) of exercise: walking and occasional exercise frequency: 3-4 times per week duration: 15-30 minutes/day Meds Home Medications and Allergies Home Medications Medication Instructions Recorded Confirmed Type folic acid 400 mcg tablet 0.4 mg PO DAILY 06/23/21 02/03/22 History prenat.vits,shan,[id number] 1 tab PO DAILY 06/23/21 02/03/22 History sertraline 100 mg tablet See Rx Instructions .ROUTE 01/16/22 02/03/22 Rx .COMPLEX #90 tab Double Electric Breast Pump and 02/03/22 02/03/22 History supplies Allergies Allergy/AdvReac Type Severity Reaction Status Date / Time No Known Drug Allergies Allergy Verified 01/16/22 16:06 Review of Systems Review of Systems ROS: Yes All systems reviewed with the patient and are negative except as otherwise documented OB Exam Narrative Exam Narrative: Temperature 36.2 BP 113/78 HR 70 HENMT Head: normal to inspection Mouth: oral mucosae normal Eyes General: appearance normal, both eyes and all related structures Resp Effort & Inspection: normal respiratory effort Auscultation: clear to auscultation bilaterally Cardio Rate: regular rate Rhythm: regular rhythm Heart Sounds: S1 normal and S2 normal Extremities Lower extremity: Yes normal to inspection; No edema Estimated Weight (lbs): 8 Objective Labs Result Diagrams: 02/03/22 02:50 Labs: Laboratory Results - last 24 hr 02/03/22 02/03/22 02/03/22 02:50 02:50 02:50 WBC 7.5 RBC 4.62 Hgb 13.1 Hct 39.3 MCV 85.0 MCH 28.4 MCHC 33.4 RDW 14.0 Plt Count 164 Neut % (Auto) 62.4 Lymph % (Auto) 24.0 L [place] % (Auto) 11.8 Eos % (Auto) 1.2 L Baso % (Auto) 0.6 Neut # (Auto) 4700 Lymph # (Auto) 1800 [place] # (Auto) 900 Eos # (Auto) 100 Baso # (Auto) 0 SARS-CoV-2 (PCR) Negative Blood Type A Positive Antibody Screen Negative Assessment and Plan Assessment and Plan Assessment and Plan narrative: 26 year old at 39 weeks with SROM for clear fluid at 11:30 PM last night. She is brady mildly on her own. Given 8 hours of rupture without active labor yet, recommended pitocin augmentation. She is in agreement. GBS negative, COVID negative. Begin pitocin per protocol Epidural upon request Anticipate
[2022-02-03] MEDS: SERTRALINE 50 MG TABLET 100 MG PO (09:23)
[2022-02-03] MEDS: LACTATED RINGERS 1,000 ML 100 ML IV (09:27)
[2022-02-03] MEDS: OXYTOCIN PREMIX 30 UNIT/500 ML PLAST..BAG IV (09:28)
--- NOTE | 2022-02-03 15:47 | PM.OBPNLAB ---
Date/Time Date Patient Seen: 02/03/22 Time Patient Seen: 15:30 Pain Control Pain control: tolerating well and epidural Pelvic Exam Dilation (cm): 3 Effacement (%): 80 station: -2 Amniotic membrane status: Ruptured (AROM clear fluid) Contractions Pitocin rate (mU/min): 4 Contraction frequency (min): 3 Contraction intensity: Moderate Status status: Category l Heart Rate Baseline: 130 Monitor Accelerations: Present Monitor Decelerations: Absent Monitor Variability: Moderate Assessment and Plan Assessment: active labor Plan: continuous present management Comments: Comfortable with epidural. AROM for clear fluid. Continue pitocin titration.
--- NOTE | 2022-02-03 19:39 | P.PCNOB_ITS ---
Labor & Delivery Delivery date: 02/03/22 Delivery augmentation: rupture of membranes and pitocin Delivery monitor: external FHT Route of delivery: L&D Laceration Description: Vaginal - 2nd Degree (Right vaginal side wall laceration) Delivery repair: vicryl Estimated blood loss (mL): 650 Anesthesia Type: Epidural Narrative: Patient is a 26-year-old at 39 weeks who gave on 02/03/22 at 18:18. SHERITA: 02/10/22 Hospital problems: 39 weeks of Epidural analgesia STAGE I: Labor Patient presented after spontaneous rupture of membranes at home on 02/02/22 at 11:30 p.m. with clear fluid. Labor had not progressed to active 8 hours later so she was started on Pitocin per protocol. She went on to receive an epidural with excellent pain control. A forebag was ruptured at 3:48 p.m.. She was complete at 6:16 p.m.. heart tones were category 1 throughout stage I. STAGE II: Delivery Patient was complete and pushed over 2 contractions to rapidly deliver a vigorous male infant at 6:18 p.m.. Infant was placed on mother's abdomen. Cord was clamped and cut after 1 minute delay. Apgars were 8 and 9. No resuscitatio n of the required. STAGE III: Placenta/Cord Placenta delivered at 6:24 p.m. and appeared intact a three-vessel cord. Pitocin bolus given after delivery. The vagina was inspected and found to have an wrong her right sidewall tear as well as second-degree midline laceration. Dr. Kennedy was called in to assist with the repair. The vaginal side wall repair was performed by Dr. Kennedy with [address] Sotomayor repaired the midline vaginal laceration. Hemostasis achieved. Uterine fundus firm below umbilicus after delivery. EBL: 650 ml, 350 ml from delivery and 300 from the repair (2 separate QBL drapes utilized) Needle and sponge counts were correct. The vagina was inspected and no items were left in situ. Patient was doing well with Aleks, her and at bedside. [place] Baby 1: gender: Male Presentation: vertex Position: Right Occiput Anterior Placenta delivery description: Spontaneous Cord Vessel Description: 3 Vessels score (1 min): 8 score (5 min): 9 Plan for aftercare: Routine care
[2022-02-03] MEDS: ACETAMINOPHEN 325 MG TABLET 650 MG PO (21:18)
[2022-02-03] MEDS: IBUPROFEN 600 MG TABLET PO (21:18)
[2022-02-03] MEDS: DERMOPLAST SPRAY 20% 60 ML 1 SPRAY TOP (21:19)
[2022-02-04] MEDS: ACETAMINOPHEN 325 MG TABLET 650 MG PO ×3 (02:57→14:42)
[2022-02-04] MEDS: IBUPROFEN 600 MG TABLET PO ×3 (02:57→14:42)
[2022-02-04] MEDS: PRENATAL VIT,CALC/IRON/FOLIC 1 TABLET 1 TAB PO (08:50)
--- NOTE | 2022-02-04 10:17 | P.DS_ITS ---
Discharge Providers Provider Date of admission: 02/03/22 01:32 Discharge Date: 02/04/22 Primary care physician: GRANT Martinez Consults: 02/04/22 19:40 Consult to Sustainability Purchasing Agent Routine Comment: Discharge provider: Tammie Sotomayor DO Summary Hospital Course Date Patient Seen: 02/04/22 Time Patient Seen: 09:30 Diagnoses: Thirty-nine weeks of Spontaneous vaginal delivery hemorrhage secondary to laceration Acute blood loss anemia Hospital Course: 26-year-old G1 now P1 after spontaneous vaginal delivery at 39 weeks gestation. Patient presented after rupture of membranes at home. She went on to receive an epidural and delivered a vigorous male infant over 2 pushes. Delivery was complicated by a a long a right vaginal sidewall laceration as well as a second degree vaginal laceration. Dr. Kennedy was called in to assist with the repair of the sidewall laceration. Estimated blood loss 650 mL. Uterine tone was excellent throughout the repair and bleeding was from the lacerations. Hemostasis was achieved without further complications. She did have an expected decrease in her hemoglobin and hematocrit given blood loss at delivery. She will be started on iron. course has otherwise been uncomplicated. She is ambulating, tolerating a diet, voiding and passing flatus. Vaginal bleeding as expected. Pain well controlled. is going very well without concerns in the . Advised patient call for fevers, severe pain or bleeding through more than a pad an hour. She will follow-up in clinic in 6 weeks but we will also see her with her . Peripartum Data Infant Delivery Method: Natural Vaginal [place] 1: Gender: Male Discharge Diagnosis (1) Spontaneous vaginal delivery: Status: Acute (2) 39 weeks gestation of : Status: Acute (3) hemorrhage: Status: Acute Time Spent with Patient Time attestation: Total time spent providing and/or coordinating discharge services: Objective Labs Result Diagrams: 02/04/22 11:35 Exam Vital Signs (past 8 hours): Temperature 98.5? blood pressure 132/86 heart rate 98 respirations 17 Narrative Exam Narrative: General: Awake and alert, no acute distress. HEENT: NCAT, EOMI, moist oral mucosa CV: Regular rate and rhythm, no murmurs, rubs or gallops Lungs: CTAB, no wheezes, rales, or rhonchi Abdomen: Soft, nontender; bowel tones active; uterus firm 1 cm below umbilicus Extremities: Warm, no edema Discharge Plan Discharge Plan Patient Disposition: Home Discharge orders & Medications Prescriptions: New ibuprofen 600 mg Tablet 600 mg PO Q6HR PRN (Reason: Pain, Mild (1-3)) Qty: 30 0RF ferrous sulfate 325 mg (65 mg iron) Tablet 325 mg PO DAILY Qty: 30 0RF Continued sertraline 100 mg tablet See Rx Instructions .ROUTE .COMPLEX Qty: 90 1RF Dose Instruction: take 1 tablet by mouth once daily Rx Instructions: take 1 tablet by mouth once daily prenat.vits,shan,[id number] Tablet 1 tab PO DAILY 0RF folic acid 400 mcg tablet 0.4 mg PO DAILY 0RF (DME) Double Electric Breast Pump and supplies 1 See Rx Instructions 0RF Rx Instructions: Use daily as directed Follow up/Referrals: Yesenia King ARNP [Primary Care Provider] - Visit Report/Discharge Packet Visit Report Forms: Patient Portal/API, Stroke Signs & Symptoms Discharge Data Primary Care Provider: Yesenia King
[2022-02-04 11:48] LABS: Add Manual Diff / Slide Review NO; Basophils Absolute Auto 0 /uL (0-100); Basophils Percent Auto 0.4 % (0-2); Eosinophils Absolute Auto 100 /uL (0-450); Eosinophils Percent Auto 0.5 % (2-4); Hematocrit 29.6 % (36-46); Hemoglobin 10.2 g/dL (12.0-16.0); Lymphocytes Absolute Auto 1300 /uL (1100-4500); Lymphocytes Percent Auto 12.7 % (25-40); Mean Corpuscular HGB Conc 34.6 % (30-36); Mean Corpuscular Volume 83.9 fL (80-100); Monocytes Absolute Auto 1100 /uL (0-900); Monocytes Percent Auto 11.5 % (3-14); Neutrophils Absolute Auto 7500 /uL (1500-7000); Neutrophils Percent Auto 74.9 % (50-75); Platelet Count 138 X10^3/uL (150-400); Red Blood Cell Count 3.53 X10^6/uL (4.0-5.2); Red Cell Distribution Width 14.3 % (11.6-14.8)
[2022-02-04 13:13] VITALS: BP 128/81; PULSE 96; RESP 16; TEMP 36.7
[2022-02-04] MEDS: FERROUS SULFATE 325 MG TABLET PO (14:43)
== END 2022-02-04 17:23 | disposition home or self-care (01) | DRG 806 ==
PROVIDERS: Admitting Provider Family Medicine; PCP Registered Nurse; Referring Provider Obstetrics & Gynecology; Visit Provider Family Medicine
DX: O42.02 Full-term premature rupture of membranes, onset of labor within 24 hours of rupture (principal); D62 Acute posthemorrhagic anemia; Z37.0 Single live birth; O90.81 Anemia of the puerperium; Z3A.39 39 weeks gestation of pregnancy; O70.1 Second degree perineal laceration during delivery; Z20.822 Contact with and (suspected) exposure to COVID-19
CPT/HCPCS: 01967; 36415; 59050; 59400; 84112; 85025; 86850; 86900; 86901; 87635; C9803; G0379; J2590